=== PATIENT | male | born 1985 | race Two or more races ===

== ENCOUNTER → 2024-05-27 | Day surgery (SDC) | payer MEDICAID, SELFPAY ==
[2024-05-25 07:30] VITALS: BMI 26.4
--- NOTE | 2024-05-25 09:10 | EKG_ITS ---
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
[2024-05-25 10:21] LABS: Basophils # (Auto) 0.1 Thou/mm3 (0.0-0.2); Basophils % (Auto) 1 % (0-2.5); Eosinophils # (Auto) 0.1 Thou/mm3 (0.0-0.5); Eosinophils % (Auto) 1 % (0-10); Hematocrit 48.5 % (41.0-53.0); Hemoglobin 16.9 g/dL (13.5-16.0); Immature Granulocytes % (Auto) 0 % (0-0); Immature Granulocytes Auto 0.04 Thou/mm3 (0.00-0.00); Lymphocytes # (Auto) 2.5 Thou/mm3 (1.0-4.8); Lymphocytes % (Auto) 19 % (10-50); Mean Corpuscular HGB Conc 34.8 g/dl (31.0-37.0); Mean Corpuscular Volume 89 fL (80-100); Monocytes # (Auto) 0.7 Thou/mm3 (0.0-0.8); Monocytes % (Auto) 6 % (0-12); Neutrophils # (Auto) 9.5 Thou/mm3 (1.8-7.7); Neutrophils % (Auto) 73 % (37-80); Nucleated Red Blood Cell % 0 /100 WBC (0); Platelet Count 387 Thou/mm3 (140-440); RDW Standard Deviation 41.1 fL (35.1-43.9); Red Blood Count 5.46 Miln/mm3 (4.50-5.90)
[2024-05-25 10:36] LABS: Anion Gap 13 (7-16); BUN/Creatinine Ratio 13 Ratio (12-20); Blood Urea Nitrogen 13 mg/dL (9-23); Calcium 10.1 mg/dL (8.3-10.6); Carbon Dioxide 25.2 mMol/L (20.0-31.0); Chloride 100 mMol/L (98-107); Estimated Creatinine Clearance 115.4 mL/min (>60); Glucose 87 mg/dL (74-106); Osmolality,Calculated 274 (275-295); Potassium 3.5 mMol/L (3.4-5.1); Sodium 138 mMol/L (136-145); eGFR > 60 See Note
--- NOTE | 2024-05-25 11:22 | SUR.PREOP ---
WBC 13.0, Dr Nuñez reviewed and Ok to proceed with surgery.
== END | disposition home or self-care (01) ==
LOC: S2EX 08:15
PROVIDERS: PCP Family Medicine; Referring Provider Surgery; Visit Provider Surgery
DX: K42.0 Umbilical hernia with obstruction, without gangrene (principal); Z01.810 Encounter for preprocedural cardiovascular examination; Z53.9 Procedure and treatment not carried out, unspecified reason
CPT/HCPCS: 36415; 80048; 85025; 93005

== ENCOUNTER 2024-06-15 07:00 | Day surgery (SDC) | payer MEDICAID, SELFPAY ==
[2024-06-14 09:40] VITALS: BMI 26.8
[2024-06-14 11:14] LABS: Basophils % (Auto) 1 % (0-2.5); Eosinophils # (Auto) 0.2 Thou/mm3 (0.0-0.5); Eosinophils % (Auto) 3 % (0-10); Hematocrit 42.1 % (41.0-53.0); Hemoglobin 14.6 g/dL (13.5-16.0); Immature Granulocytes % (Auto) 0 % (0-0); Immature Granulocytes Auto 0.02 Thou/mm3 (0.00-0.00); Lymphocytes # (Auto) 1.5 Thou/mm3 (1.0-4.8); Lymphocytes % (Auto) 25 % (10-50); Mean Corpuscular HGB Conc 34.7 g/dl (31.0-37.0); Mean Corpuscular Hemoglobin 30.5 pg (25.0-35.0); Mean Corpuscular Volume 88 fL (80-100); Monocytes # (Auto) 0.5 Thou/mm3 (0.0-0.8); Monocytes % (Auto) 8 % (0-12); Neutrophils # (Auto) 3.9 Thou/mm3 (1.8-7.7); Neutrophils % (Auto) 64 % (37-80); Nucleated Red Blood Cell % 0 /100 WBC (0); Platelet Count 290 Thou/mm3 (140-440); RDW Standard Deviation 38.5 fL (35.1-43.9); Red Blood Count 4.78 Miln/mm3 (4.50-5.90); White Blood Count 6.1 Thou/mm3 (3.8-10.6)
[2024-06-14 11:22] LABS: Anion Gap 8 (7-16); BUN/Creatinine Ratio 15 Ratio (12-20); Blood Urea Nitrogen 12 mg/dL (9-23); Calcium 9.9 mg/dL (8.3-10.6); Carbon Dioxide 26.2 mMol/L (20.0-31.0); Chloride 106 mMol/L (98-107); Creatinine (Component) 0.8 mg/dL (0.6-1.3); Estimated Creatinine Clearance 144.3 mL/min (>60); Glucose 103 mg/dL (74-106); Osmolality,Calculated 279 (275-295); Potassium 4.5 mMol/L (3.4-5.1); Sodium 140 mMol/L (136-145); eGFR > 60 See Note
[2024-06-15] VITALS (9 sets, daily range): BP systolic 123–157; BP diastolic 79–104; PULSE 69–78; RESP 14–18; TEMP 36.5–36.8; O2SAT 95–100; BMI 26.9
[2024-06-15] MEDS: RINGERS LACTATED 1000 ML 1,000 ML 20 ML IV (07:12)
--- NOTE | 2024-06-15 11:22 | SUR.PHASEI ---
pt received from OR in recovery bay 2. pt asleep but responds to voice, breathing unlabored on 10l oxymask. v/s stable. pt dressing to abd dermabond x4 cdi. report received from Tatum PAINTING and Quang STANLEY.
[2024-06-15] MEDS: fentaNYL CIT INJ 50 mCg/ML AMP 2ML IV ×2 (11:27→11:36)
--- NOTE | 2024-06-15 11:31 | ESOP_ITS ---
Date of Procedure 06/15/24 Pre Op Diagnosis Incarcerated umbilical hernia Post Op Diagnosis Incarcerated umbilical hernia Procedure Laparoscopic assisted repair of incarcerated umbilical hernia with mesh Findings Patient was noted to have approximately 2.5 cm umbilical hernia defect with incarcerated omentum Procedure Description Patient brought into the operating room in supine position. After administration of general orotracheal anesthesia, patient's abdomen prepped and draped in standard surgical manner. A 5 mm incision was made in left upper quadrant and Veress needle was inserted, pneumoperitoneum was obtained to 15 mmHg. The Veress needle was removed and a 5 mm trocar was placed. Laparoscopic camera was inserted, under direct visualization a laparoscopic camera a 5 mm trocar placed in left lower quadrant and additional 5 mm trocar placed in right lower quadrant. The abdomen was inspected and patient was noted to have an incarcerated umbilical hernia with omentum being incarcerated within the hernia sac. The hernia sac was excised with Harmonic scalpel laparoscopically and the omentum was reduced. At this point approximately 3 cm semicircular incision was made superior to the umbilicus and dissection was carried to subcutaneous tissue. The hernia sac was circumferentially dissected off surrounding tissue and excised from surrounding abdominal fascia. The fascia was cleared from overlying tissue. The defect was approximately 2.5 cm in diameter. A 4 x 6 elliptical shape proceed mesh was used to cover the defect. 2 tacking sutures using 0 Ethibond placed the 2 ends of the mesh and the mesh was placed inside the abdominal cavity through the hernia defect. The defect was closed with interrupted sutures using 0 Ethibond. The umbilicus was tacked into the underlying abdominal fascia was 2-0 Vicryl suture in subcutaneous tissue closed with interrupted sutures of 2-0 Vicryl. The abdomen was once again insufflated. 2 tacking sutures of the 2 ends of the mesh were retrieved through the previously marked abdominal wall site. Sutures were tightened and the mesh was further secured into anterior abdominal wall with secure strap tacking device. The mesh was covering the defect with at least 4 cm circumferential margin. Hemostasis was adequate and satisfactory. Instruments and trocars removed, pneumoperitoneum was evacuated and the incisions closed 4-0 Monocryl subcuticular fashion. Instruments, needles and sponge counts were reported to be correct ?2 patient tolerated the procedure well. Patient was extubated, breathing spontaneously and without difficulty and was transferred to postanesthesia care in stable condition. Anesthesia GETA and local Pathology / specimen Other (Hernia sac) Estimated Blood Loss 5 Condition Stable Disposition PACU Surgeon Griffin Nuñez MD Surgical Staff Operation Date: 06/15/24 09:45 Case Staff AIR DRIER MACHINE OPERATOR: Ford Schaefer RNair compressor engineer: Argelia Neil
--- NOTE | 2024-06-15 11:50 | SUR.PHASEI ---
pt able to tolerate oral fluids without difficulty swallowing or nausea/vomiting.
[2024-06-15] MEDS: HYDROmorphone INJ 2 MG/ML VIAL 0.5 MG IV ×2 (11:54→12:24)
--- NOTE | 2024-06-15 13:00 | SUR.PHASEII ---
pt discharged with all belongings via wheel chair. vss. breathing even and unlabored on room air. dressings remain cdi to abdomen with abdominal binder in place. tolerated po liquids. and urinated prior to discharge. discharge instructions gone over with pt and mother. both verbalized understanding, signed by mother.
== END 2024-06-15 13:00 | disposition home or self-care (01) ==
PROVIDERS: PCP Family Medicine; Referring Provider Surgery; Visit Provider Surgery
PROC: 0WQF4ZZ Repair Abdominal Wall, Percutaneous Endoscopic Approach (ICD-10-PCS; CPT 49592; principal; 2024-06-15 09:30)
DX: K42.0 Umbilical hernia with obstruction, without gangrene (principal)
CPT/HCPCS: 49592; 36415; 80048; 85025; A4217; A4649; C1781; J0690; J1100; J2250; J2405; J2704; J3010; J3490; J7120